=== PATIENT | male | born 1960 | race Two or more races ===

== ENCOUNTER 2021-01-07 10:35 | Outpatient (CLI) | payer OTHER | END 2021-01-07 10:36 | disposition home or self-care (01) | LOC: RAD 10:35 | PROVIDERS: ATTEND Colon & Rectal Surgery | DX: R07.89 Other chest pain (principal); K57.32 Diverticulitis of large intestine without perforation or abscess without bleeding; K92.1 Melena ==

== ENCOUNTER 2023-08-18 08:40 | Outpatient (CLI) | payer OTHER | END 2023-08-18 09:05 | disposition home or self-care (01) | LOC: RAD 08:40 | PROVIDERS: ATTEND Physical Medicine & Rehabilitation Hospice and Palliative Medicine | DX: M79.672 Pain in left foot (principal); M77.42 Metatarsalgia, left foot ==

== ENCOUNTER 2024-02-12 07:52 | Outpatient (CLI) | payer OTHER | END 2024-02-12 07:56 | disposition home or self-care (01) | LOC: SONOGRAMA 07:52 | PROVIDERS: ATTEND Internal Medicine | DX: R10.9 Unspecified abdominal pain (principal) ==

== ENCOUNTER → 2024-07-12 07:34 | Outpatient (CLI) | payer OTHER ==
[2024-07-12 08:30] LABS: PH,URINE 6.5 (5.0-8.0); URINE APPEARANCE Clear; URINE BILIRRUBIN Negative (NEGATIVE); URINE BLOOD NHT; URINE COLOR Yellow; URINE GLUCOSE Negative (NEGATIVE); URINE KETONE Negative (NEGATIVE); URINE LEUKOCYTE Negative; URINE NITRATE Negative; URINE PROTEIN Negative (NEGATIVE); URINE UROBILINOGEN 0.2 E.U./dl
[2024-07-12 08:35] LABS: URINE BACTERIA 8.5 uL (0.0-1933); URINE WBC 10.2 uL (0.0-23.2)
[2024-07-12 08:37] LABS: URINE CAST 0.14 uL (0.0-1.40); URINE EPITHELIAL CELLS 0.7 uL (0.0-38.8)
[2024-07-12 08:40] LABS: HEMOGLOBIN 14.9 g/dL (13-16.00); MEAN CELL VOLUME 91.3 fL (80.0-100.00); MEAN CORPUSCULAR HEMOGLOBIN 31.7 pg (27.00-32.0); MEAN CORPUSCULAR HGB CONC 34.8 g/dl (32.0-36.0); PLATELET COUNT 333 K/uL (150-450); RED BLOOD COUNT 4.71 M/uL (4.00-6.00); RED CELL DISTRIBUTION WIDTH 12.9 % (11.5-14.5)
[2024-07-12 09:50] LABS: ERYTHROCYTE SEDIMENTATION RATE 65 mm/hr
[2024-07-12 09:58] LABS: ALBUMIN 3.5 gm/dL (3.4-5.0); BILIRUBIN TOTAL 0.51 mg/dL (0.3-1.2); CALCIUM 8.6 mg/dL (8.5-10.1); CHOL HDL RATIO 3.6 (0-5.0); CREATININE SERUM 0.78 mg/dL (0.70-1.30); FERRITIN 250.4 NG/ML (26-388); GFR 100.85; GLOBULINA 3.8 G/DL (2.4-3.5); POTASSIUM 4.43 mEq/L (3.5-5.1); PROSTATIC SPECIFIC ANTIGEN 1.48 NG/ML (0.010-4.00); T4 FREE 0.91 NG/ML (0.76-1.46); TOTAL PROTEIN 7.3 gm/dL (6.4-8.2); TSH 2.18 uIU/mL (0.358-3.74)
[2024-07-12 10:10] LABS: C-REACTIVE PROTEIN 1.25 MG/DL (0.00-0.29)
[2024-07-12 11:33] LABS: ob NEGATIVE (NEGATIVE)
[2024-07-12 11:35] LABS: FOLIC ACID > 20.00 ng/ml (4.78-20)
[2024-07-13 08:08] LABS: hav igm Negative (Negative); hcv Non Reactive (Non Reactive); hep b c Negative (Negative); hep b s ag Negative (Negative)
== END | disposition home or self-care (01) ==
LOC: LAB 07:34
DX: E53.8 Deficiency of other specified B group vitamins (principal); E55.9 Vitamin D deficiency, unspecified; E78.9 Disorder of lipoprotein metabolism, unspecified; N28.9 Disorder of kidney and ureter, unspecified; Z12.11 Encounter for screening for malignant neoplasm of colon; K63.9 Disease of intestine, unspecified; R76.8 Other specified abnormal immunological findings in serum; D68.9 Coagulation defect, unspecified; R71.8 Other abnormality of red blood cells; R79.82 Elevated C-reactive protein (CRP); B00.9 Herpesviral infection, unspecified; K74.00 Hepatic fibrosis, unspecified; Z11.4 Encounter for screening for human immunodeficiency virus [HIV]; D64.9 Anemia, unspecified; K92.1 Melena; K76.9 Liver disease, unspecified; D70.9 Neutropenia, unspecified; K58.9 Irritable bowel syndrome, unspecified; J06.9 Acute upper respiratory infection, unspecified

== ENCOUNTER 2025-01-31 09:49 | Outpatient (CLI) | payer OTHER | END 2025-01-31 09:51 | disposition home or self-care (01) | LOC: RAD 09:49 | PROVIDERS: ATTEND General Practice | DX: M25.552 Pain in left hip (principal); M25.562 Pain in left knee; M25.512 Pain in left shoulder | CPT/HCPCS: 73718 ==